=== PATIENT | female | born 1965 ===

== ENCOUNTER 2017-11-15 08:07 | Emergency (ER) | payer SELFPAY ==
[2017-11-15 08:13] VITALS: TEMP 97.4
[2017-11-15] MEDS ORDERED: Oxycodone/Acetaminophen 5/325 mg Tab PO STA (08:37)
[2017-11-15] MEDS ORDERED: Oxycodone/Acetaminophen 5/325 mg Tab ONE (08:46)
--- NOTE | 2017-11-15 10:30 | RAD ---
PROCEDURE: Right Ankle Radiographs. HISTORY: pain COMPARISON: None FINDINGS: BONES: No acute fracture or destructive bony lesion identified. JOINTS: Normal. No osteoarthritis. Ankle mortise maintained. Talar dome intact SOFT TISSUES: Normal. OTHER FINDINGS: A moderate sized plantar calcaneal spur is identified. IMPRESSION: Moderate plantar calcaneal spur. No fracture, subluxation or dislocation identified.
--- NOTE | 2017-11-15 10:34 | RAD ---
PROCEDURE: Right Foot Radiographs. HISTORY: pain COMPARISON: None. FINDINGS: BONES: No acute fracture or destructive bony lesion identified. Moderate plantar calcaneal spur noted. JOINTS: Normal. SOFT TISSUES: Normal. OTHER FINDINGS: None. IMPRESSION: No acute fracture or dislocation identified. A moderate plantar calcaneal spur is identified.
--- NOTE | 2017-11-15 10:49 | C.PDOC ---
History Of Present Illness 52 y/o female presents to ED with complaints of right heel and leg pain for 2 weeks. Patient reports no injury or trauma and denies history of DVT, fever, chills, redness to leg or any other complaints at this time. Time Seen by Provider: 11/15/17 08:19 Chief Complaint (Nursing): Lower Extremity Problem/Injury History Per: Patient History/Exam Limitations: no limitations Onset/Duration Of Symptoms: Days Current Symptoms Are (Timing): Still Present Past Medical History Reviewed: Historical Data, Nursing Documentation, Vital Signs Vital Signs: Last Vital Signs Temp 97.4 F L 11/15/17 08:10 Pulse 78 11/15/17 11:23 Resp 20 11/15/17 11:23 BP 124/78 11/15/17 11:23 Pulse Ox 98 11/15/17 11:23 - Medical History PMH: No Chronic Diseases Surgical History: No Surg Hx Family History: States: No Known Family Hx - Social History Hx Alcohol Use: No Hx Substance Use: No - Immunization History Hx Tetanus Toxoid Vaccination: No Hx Influenza Vaccination: No Hx Pneumococcal Vaccination: No Review Of Systems Except As Marked, All Systems Reviewed And Found Negative. Musculoskeletal: Positive for: Leg Pain Physical Exam - Physical Exam Appears: Non-toxic, No Acute Distress Skin: Warm, Dry, No Rash Head: Atraumatic, Normacephalic Oral Mucosa: Moist Neck: Normal ROM, Supple Cardiovascular: Rhythm Regular Respiratory: Normal Breath Sounds, No Rales, No Rhonchi, No Wheezing Extremity: Tenderness (Right heel), Calf Tenderness, No Deformity, No Swelling Extremity: Bilateral: Normal ROM Pulses: Left Dorsalis Pedis: Normal, Right Dorsalis Pedis: Normal Neurological/Psych: Oriented x3, Normal Motor, Normal Sensation ED Course And Treatment O2 Sat by Pulse Oximetry: 97 (RA) Pulse Ox Interpretation: Normal Medical Decision Making Medical Decision Making: Assessment: Progress: Xray showed Heel spur Patient discharged and advised follow up with [facility] Dr. Gomez in 2 days. Disposition Discussed With : Nenita Gomez Counseled Patient/Family Regarding: Studies Performed, Diagnosis, Need For Followup, Rx Given - Disposition Disposition: HOME/ ROUTINE Disposition Time: 10:47 Condition: STABLE Additional Instructions: follow up with podiatry in 2 days call to make an appointment take medications as needed for pain return to ER if symptoms worsens or progress Prescriptions: Acetaminophen/Codeine [Tylenol/Codeine 300 MG/30 MG] 1 tab PO Q6H PRN #12 tab PRN Reason: Pain, Severe (8-10) Instructions: Heel Spurs Forms: [facility] (Bengali), General Discharge Instructions - Clinical Impression Clinical Impression: Heel spur - Scribe Statement The provider has reviewed the documentation as recorded by the Phoebeiblen Lima All medical record entries made by the Phoebeiblen were at my direction and personally dictated by me. I have reviewed the chart and agree that the record accurately reflects my personal performance of the history, physical exam, medical decision making, and the department course for this patient. I have also personally directed, reviewed, and agree with the discharge instructions and disposition.
[2017-11-15 11:24] VITALS: BP 124/78; PULSE 78; RESP 20
[2017-11-15 11:32] VITALS: O2SAT 97
--- NOTE | 2017-11-15 13:43 | VASCLAB ---
PROCEDURE: Right Lower Extremity Venous Duplex Exam. HISTORY: pain PRIORS: None. TECHNIQUE: Right common femoral, femoral, popliteal and posterior tibial, peroneal and great saphenous veins were evaluated. Flow was assessed with color Doppler, compressibility, assessment of phasic flow and augmentation response. Report prepared by MELONY Alonzo, RVT FINDINGS: RIGHT: 1. Common Femoral Vein: 1.1. Compressibility - Fully compressible: Thrombus - None: Flow - Phasic: Augmentation -Normal: Reflux - None. 2. Femoral Vein: 2.1. Compressibility - Fully compressible: Thrombus - None: Flow - Phasic: Augmentation -Normal: Reflux - None. 3. Popliteal Vein: 3.1. Compressibility - Fully compressible: Thrombus - None: Flow - Phasic: Augmentation -Normal: Reflux - None. 4. Posterior Tibial Vein: 4.1. Compressibility - Fully compressible: Thrombus - None: Flow - Phasic: Augmentation -Normal: Reflux - None. 5. Peroneal Vein: 5.1. Compressibility - Fully compressible: Thrombus - None: Flow - Phasic: Augmentation -Normal: Reflux - None. 6. Great Saphenous Vein: 6.1. Compressibility - Fully compressible: Thrombus -None: Flow - Phasic: Augmentation - Normal: Reflux - None. OTHER FINDINGS: IMPRESSION: No evidence of deep or superficial vein thrombosis of the right lower extremity with excellent venous flow. Normal valve function noted of the right side. Normal venous flow noted in the left common femoral vein.
== END 2017-11-15 11:23 | disposition home or self-care (01) ==
LOC: C.ER 08:07
DX: M77.31 Calcaneal spur, right foot (principal)

== ENCOUNTER 2018-09-26 09:29 | Outpatient (CLI) | payer SELFPAY | END 2018-09-26 09:30 | disposition home or self-care (01) | LOC: C.MAMMO 09:30 | DX: Z12.31 Encounter for screening mammogram for malignant neoplasm of breast (principal) ==

== ENCOUNTER 2018-10-31 09:24 | Outpatient (CLI) | payer SELFPAY | END 2018-10-31 09:25 | disposition home or self-care (01) | LOC: C.MAMMO 09:24 ==